=== PATIENT | male | born 1985 | race Caucasian/White ===

== ENCOUNTER 2017-06-23 05:21 | Emergency (ER) | payer OTHER ==
[~2017-06-23] VITALS: Ht 177.8 cm; Wt 70.7 kg
[2017-06-23 05:30] VITALS: Ht 177.8 cm; Wt 70.7 kg
[2017-06-23] MEDS ORDERED: SOD CHLORIDE 0.9% 1,000 ML IV STA (05:43)
[2017-06-23] MEDS ORDERED: KETOROLAC 30 MG INJ IV STA (05:43)
[2017-06-23] MEDS ORDERED: ONDANSETRON 4 MG INJ IV STA (05:43)
--- NOTE | 2017-06-23 06:24 | ERD ---
ER Documentation Chief Complaint Chief Complaint abdominal pain with vomiting x 3 hours HPI This is a 32-year-old male presenting to the emergency department for abdominal pain with vomiting 3 hours. Patient states he woke up due to pain in epigastric and periumbilical region. Patient rates pain 10/10. Patient states 2 hours after pain started he developed vomiting. Patient had 3 episodes of nonbloody nonbilious emesis. No diarrhea or constipation. No urinary symptoms. patient states he took Tylenol and antacids at home without relief of symptoms. Patient states he had similar episode to this about 1 year ago and drink apple juice and symptoms resolved. Patient denies fevers or chills. Patient has history of hernia. ROS All systems reviewed and are negative except as per history of present illness. Medications Home Meds Active Scripts Ondansetron Hcl* (Zofran*) 4 Mg Tablet, 4 MG PO Q6H for NAUSEA AND/OR VOMITING, #10 TAB Prov:ARMIDA MALDONADO NP 06/23/17 Hydrocodone/Acetaminophen ([place] 5-325 Tablet) 1 Each Tablet, 1 TAB PO Q6H Y for PAIN, #5 TAB Prov:ARMIDA MALDONADO NP 06/23/17 PMhx/Soc Medical and Surgical Hx: pt denies Medical Hx History of Surgery: Yes Anesthesia Reaction: No Hx Neurological Disorder: No Hx Respiratory Disorders: No Hx Cardiac Disorders: No Hx Psychiatric Problems: No Hx Miscellaneous Medical Probl: No Hx Alcohol Use: No Hx Substance Use: No Hx Tobacco Use: No Smoking Status: Never smoker Physical Exam Vitals Vital Signs Date Time Temp Pulse Resp B/P Pulse Ox O2 Delivery O2 Flow Rate FiO2 06/23/17 07:35 98.0 64 17 108/62 99 06/23/17 05:30 97.5 72 17 110/63 99 Physical Exam Const: No acute distress, alert Head: Atraumatic Eyes: Normal Conjunctiva ENT: Normal External Ears, Nose and Mouth. Neck: Full range of motion..~ No meningismus. Resp: Clear to auscultation bilaterally Cardio: Regular rate and rhythm, no murmurs Abd: Soft, non tender, non distended. Normal bowel sounds. Negative Davidson sign. No McBurney point tenderness. No rebound tenderness. No peritoneal signs. Skin: No petechiae or rashes Back: No midline or flank tenderness Ext: No cyanosis, or edema Neur: Awake and alert Psych: Normal Mood and Affect Result Diagram: 06/23/17 0610 06/23/17 0610 Results 24 hrs Laboratory Tests Test 06/23/17 06:10 06/23/17 06:25 White Blood Count 12.810^3/ul Red Blood Count 5.9610^6/ul Hemoglobin 15.3g/dl Hematocrit 48.0% Mean Corpuscular Volume 80.5fl Mean Corpuscular Hemoglobin 25.7pg Mean Corpuscular Hemoglobin Concent 31.9g/dl Red Cell Distribution Width 13.3% Platelet Count 32563^3/UL Mean Platelet Volume 10.3fl Neutrophils % 68.6% Lymphocytes % 23.1% Monocytes % 6.5% Eosinophils % 0.8% Basophils % 0.6% Nucleated Red Blood Cells % 0.0/100WBC Neutrophils # 8.710^3/ul Lymphocytes # 3.010^3/ul Monocytes # 0.810^3/ul Eosinophils # 0.110^3/ul Basophils # 0.110^3/ul Nucleated Red Blood Cells # 0.010^3/ul Sodium Level 145mmol/L Potassium Level 3.7mmol/L Chloride Level 102mmol/L Carbon Dioxide Level 29mmol/L Anion Gap 18 Blood Urea Nitrogen 12mg/dl Creatinine 0.91mg/dl Glucose Level 104mg/dl Calcium Level 9.6mg/dl Total Bilirubin 0.4mg/dl Direct Bilirubin 0.00mg/dl Indirect Bilirubin 0.4mg/dl Aspartate Amino Transf (AST/SGOT) 33IU/L Alanine Aminotransferase (ALT/SGPT) 48IU/L Alkaline Phosphatase 69IU/L Total Protein 8.1g/dl Albumin 5.0g/dl Globulin 3.10g/dl Albumin/Globulin Ratio 1.61 Lipase 32U/L Urine Color YELLOW Urine Clarity CLEAR Urine pH 5.0 Urine Specific [place] 1.018 Urine Ketones NEGATIVEmg/dL Urine Nitrite NEGATIVEmg/dL Urine Bilirubin NEGATIVEmg/dL Urine Urobilinogen NEGATIVEmg/dL Urine Leukocyte Esterase NEGATIVELeu/ul Urine Hemoglobin NEGATIVEmg/dL Urine Glucose NEGATIVEmg/dL Urine Total Protein NEGATIVEmg/dl Current Medications Medications (Trade) Dose Ordered Sig/Rosalba Route PRN Reason Start Time Stop Time Status Last Admin Dose Admin Sodium Chloride (NS) 1,000 ml @ 1,000 mls/hr Q1H STAT IV 06/23/17 05:43 06/23/17 06:42 DC 06/23/17 06:15 Ondansetron HCl (Zofran Inj) 4 mg ONCE STAT IV 06/23/17 05:43 06/23/17 05:44 DC 06/23/17 06:11 Ketorolac Tromethamine (Toradol) 30 mg ONCE STAT IV 06/23/17 05:43 06/23/17 05:44 DC 06/23/17 06:12 Procedures/MDM MDM: This is a 32-year-old male presenting to emergency department with periumbilical and epigastric abdominal pain with vomiting 3 hours. Patient is afebrile vital signs are stable IV access obtained and labs drawn.. Patient given Toradol and Zofran IV. Patient also given 1 L IV fluid bolus of normal saline. Upon reassessment, patient states pain has improved. No abdominal pain or tenderness on physical exam. No active vomiting. CBC shows no significant anemia or infection. CMP shows no significant electrolyte imbalance. Normal creatinine BUN. Normal liver enzymes. Normal lipase. Normal glucose. Discussed findings with patient. Differential diagnosis includes but not limited to acute AL, pancreatitis, peptic ulcer disease, GERD, gastritis, cholecystitis, cholelithiasis, choledocholithiasis and gastroparesis and functional dyspepsia. I doubt acute AL due to patient's normal vital signs, patient denies chest pain , shortness of breath, difficulty breathing or heart palpitations. I doubt pancreatitis due to patient's normal lab results. Patient is appropriate for outpatient management and instructed to follow-up with primary care provider in the next 2-3 days for reassessment. Instructed patient to return to the ED in 8 hours for abdominal pain recheck. Return to ED for any high fever, chest pain, difficulty breathing, shortness breath, wheezing, vomiting, diarrhea, abdominal pain or any new or worsening symptoms. Patient verbalizes understanding. All questions answered at discharge. Disclaimer: Inadvertent spelling and grammatical errors are likely due to EHR/ dictation software use and do not reflect on the overall quality of patient care. Also, please note that the electronic time recorded on this note does not necessarily reflect the actual time of the patient encounter. Departure Diagnosis: Primary Impression: Abdominal pain Abdominal location: generalized Qualified Code: R10.84 - Generalized abdominal pain Condition: Stable ARMIDA MALDONADO NP Jun 23, 2017 06:24
[2017-06-23 06:42] LABS: ADD UMIC NO; UR ASCORBIC ACID 40 mg/dL (NEGATIVE); UR BILIRUBIN (Dip) NEGATIVE (NEGATIVE); UR BLOOD (Dip) NEGATIVE (NEGATIVE); UR CLARITY CLEAR (CLEAR); UR COLOR YELLOW (YELLOW); UR GLUCOSE (Dip) NEGATIVE (NEGATIVE); UR KETONES (Dip) NEGATIVE (NEGATIVE); UR LEUKOCYTE ESTERASE (Dip) NEGATIVE Leu/ul (NEGATIVE); UR NITRITE (Dip) NEGATIVE (NEGATIVE); UR SPECIFIC GRAVITY (Dip) 1.018 (1.003-1.030); UR TOTAL PROTEIN (Dip) NEGATIVE (NEGATIVE); UR UROBILINOGEN (Dip) NEGATIVE (NEGATIVE)
[2017-06-23 06:48] LABS: BASOPHIL # 0.1 10^3/ul (0.0-0.1); BASOPHILS % 0.6 % (0.0-2.0); EOSINOPHILS # 0.1 10^3/ul (0.0-0.5); EOSINOPHILS % 0.8 % (0.0-7.0); HEMOGLOBIN 15.3 g/dl (14.0-18.0); LYMPHOCYTES % 23.1 % (15.0-51.0); MEAN CORPUSCULAR HEMOGLOBIN 25.7 pg (29.0-33.0); MEAN CORPUSCULAR HGB CONC 31.9 g/dl (32.0-37.0); MEAN CORPUSCULAR VOLUME 80.5 fl (82.0-101.0); MEAN PLATELET VOLUME 10.3 fl (7.4-10.4); MONOCYTE # 0.8 10^3/ul (0.3-0.9); MONOCYTES % 6.5 % (0.0-11.0); NEUTROPHIL # 8.7 10^3/ul (1.6-7.5); NEUTROPHILS % 68.6 % (39.0-77.0); PLATELET COUNT 357 10^3/UL (140-415); RED BLOOD COUNT 5.96 10^6/ul (4.70-6.10); RED CELL DISTRIBUTION WIDTH 13.3 % (11.5-14.5); WHITE BLOOD COUNT 12.8 10^3/ul (4.8-10.8)
[2017-06-23 06:55] LABS: ALBUMIN/GLOBULIN RATIO 1.61; BILIRUBIN,INDIRECT 0.4 mg/dl (0-1.1); BILIRUBIN,TOTAL 0.4 mg/dl (0.2-1.3); CALCIUM 9.6 mg/dl (8.4-10.2); CREATININE 0.91 mg/dl (0.61-1.24); POTASSIUM 3.7 mmol/L (3.5-5.1); TOTAL PROTEIN 8.1 g/dl (6.1-8.1)
[2017-06-23] MEDS ORDERED: HYDR-906 PO (07:22)
[2017-06-23] MEDS ORDERED: ONDA4TAB8 PO (07:22)
[2017-06-23 07:35] VITALS: BP 108/62; PULSE 64; RESP 17; TEMP 98
== END 2017-06-23 07:34 | disposition home or self-care (01) ==
LOC: FTE 05:21
DX: R10.84 Generalized abdominal pain (principal); R11.10 Vomiting, unspecified
CPT/HCPCS: 80053; 81003; 83690; 85025; J1885; J2405; J7030; 36415; 96374; 96375